=== PATIENT | male | born 1995 | race Hispanic/Latino ===

== ENCOUNTER 2019-01-26 23:16 | Emergency (ER) | payer SELFPAY ==
[2019-01-26 23:16] VITALS: BP 119/64; PULSE 77; RESP 20; TEMP 36.4; O2SAT 100; BMI 23.9
--- NOTE | 2019-01-26 23:28 | EKG12_ITS ---
Test Reason : Blood Pressure : / mmHG Vent. Rate : 071 BPM Atrial Rate : 071 BPM P-R Int : 134 ms QRS Dur : 082 ms QT Int : 358 ms P-R-T Axes : 035 045 041 degrees QTc Int : 389 ms Normal sinus rhythm Normal ECG Confirmed by JUANA WALTERS MD ([id number]), pictures editor NORMA NORWOOD ([id number] on 01/27/2019 2:41:12 PM Referred By: DC Confirmed By:JUANA WALTERS MD
[2019-01-26] MEDS: 0.9% Normal Saline 1,000 ML 1000 ML IV (23:30)
[2019-01-26 23:46] LABS: Absolute Lymphocyte Count 1.65 X10^3/ul (0.83-4.51); Absolute Neutrophil Count 9.4 X10^3/uL (2.0-7.7); Basophil# 0.02 X10^3/uL; Basophil% 0.2 % (0-1); Eosinophil# 0.04 X10^3/uL; Eosinophils% 0.3 % (0-5); Hematocrit 40.9 % (40-54); Hemoglobin 13.8 g/dl (13.0-16.5); Lymphocyte # 1.65 X10^3/ul (4.0); Mean Corp Hgb Conc 33.7 g/gl (32-36); Mean Corpuscular Hgb 30.5 pg (27.0-32.0); Mean Corpuscular Volume 90.3 fL (80-94); Monocyte# 0.69 X10^3/uL; Monocyte% 5.9 % (0-10); Neutrophil # 9.36 X10^3/uL (2.7-7.7); Neutrophil % 79.4 % (47-70); Platelet Count 261 K/mm3 (150-450); RBC Distribution Width CV 12.5 % (11.6-14.6); RBC Distribution Width SD 41.2 fl (35.1-43.9); Red Blood Count 4.53 M/mm3 (4.6-6.2); White Blood Count 11.8 K/mm3 (4.4-11.0)
[2019-01-26 23:47] LABS: POSITIVE COUNT NO; POSITIVE DIFFERENTIAL NO; POSITIVE MORPHOLOGY NO
[2019-01-26 23:55] LABS: International Normalized Ratio 1.1; Partial Thromboplast Time 29.9 Seconds (24.1-36.2); Prothrombin Time (Protime)PT. 14.1 SECONDS (11.7-14.9)
[2019-01-27 00:23] LABS: Alcohol, Blood (Medical)-Serum < 3.0 mg/dL
[2019-01-27 00:31] LABS: Anion Gap 6 (5-15); BUN 12 mg/dL (7-18); BUN/Creat Ratio 12.1 RATIO (10-20); Calcium,Total 9.1 mg/dL (8.5-10.1); Chloride 106 mmol/L (98-107); Creatinine, Serum 0.99 mg/dL (0.70-1.30); EST Glomerular Filtration Rate 97 mL/min (>60); Est Glom Filt Rate - Afr Amer 118 mL/min (>60); Estimated Creatinine Clearance 88.09 ml/min; Glucose 90 mg/dL (74-106); Potassium 3.7 mmol/L (3.5-5.1); Sodium Level 139 mmol/L (136-145)
[2019-01-27 00:47] LABS: Bacteria 0 SEEN /hpf (None Seen); Red Blood Cells-Urine 0 SEEN /hpf (0-5); White Blood Cells 0 SEEN /hpf (0-5)
[2019-01-27 00:52] LABS: Color, Urine Yellow (Yellow); Glucose, Dipstick Normal (Normal); Ketone-Dipstick 5 mg/dl (Negative); Leukocyte Esterase-Dipstick Negative /ul (Negative); Nitrite-Dipstick Negative (Negative); Occult Blood-Urine Negative /ul (Negative); Protein-Dipstick Negative (Negative); Specific Gravity, Urine 1.015 (1.002-1.030); Urine Bilirubin Dipstick Negative (Negative); Urine Clarity Cloudy (Clear); Urine Urobilinogen Normal (Normal)
[2019-01-27 00:59] LABS: Amorphous Sediment 3+; Amphetamine Urine VISTA NEGATIVE (<1000 ng/mL); Barbiturate Urine VISTA NEGATIVE (< 200 ng/mL); Benzodiazepine Urine VISTA NEGATIVE (< 200 ng/mL); Cocaine Urine VISTA NEGATIVE (< 300 ng/mL); Ecstacy Urine VISTA NEGATIVE (< 500 ng/mL); Methadone Urine VISTA NEGATIVE (< 300 ng/mL); Mucous, Urine RARE /hpf (<or=2+); PCP Urine VISTA NEGATIVE (< 25 ng/mL); Squamous Epithelial Cells - UA 0-5 SEEN /hpf (0-5); THC Urine VISTA NEGATIVE (< 50 ng/mL); Vista UDS pH Range 7
[2019-01-27 01:16] VITALS: BP 102/51; PULSE 80; RESP 16; O2SAT 98
--- NOTE | 2019-01-27 01:41 | ED.VISSUMM ---
- ER Visit Summary Date of Service: 01/27/19 Chief Complaint: Headache History of Present Illness: The patient is a 23 M who presents with a headache that started this evening. The pain is in his frontal head and does not radiate. He said he never had a headache like this in the past. Denies any injury. Denies any fevers or recent illness. Denies any drug use or alcohol. Denies blood thinners. Denies weakness or numbness, but according to bystanders, he did have a shaking episode where he was unresponsive. This lasted several minutes, and he woke up spontaneously. EMS was contacted. He was drowsy but had no other seizure activity or issues in route to the ED. Physical Examination: Afebrile and vital signs unremarkable. Head and neck atraumatic. HEENT exam unremarkable. Cranial nerves grossly intact. Heart regular. Lungs clear. Abdomen soft. Good strength and sensation. Test Results: EKG showed sinus rhythm at a rate of 71. No sign of acute ischemia or infarction pattern. White count 11.8. Metabolic panel and coags normal. Urinalysis and troponin unremarkable. Tox screen and alcohol negative. CT brain showed a left temporal lobe lesion concerning for cysticercosis. Recommend MRI. Emergency Department Course and Treatment: Patient presents by EMS. 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 Patient had seizure precautions and monitoring. Workup was all fairly unremarkable except for the brain lesion. We do not have MRI available at this time at this facility. I spoke with neurology who recommended transfer to a facility with neurosurgical care and stat MRI availability. Patient treated with Keppra. I spoke with the call center at [facility]. They discussed the patient with Dr. Redman who advised transfer to the ED for stat MRI and further evaluation. Dr. Egan accepted the patient. Treatment Plan: As above Disposition: Transfer to [facility] Impression: 1. Left temporal lobe lesion 2. Seizure This note was generated with [employer] dictation software. It may contain incorrect words, spelling, and punctuation that were not noted in review of the chart prior to signing ED Disposition - Plan for ED Patient: Referrals: Care Physician,No Primary [Primary Care Provider] -
--- NOTE | 2019-01-27 01:45 | ED.DCSUM_ITS ---
- ER Visit Summary Date of Service: 01/27/19 Chief Complaint: Headache History of Present Illness: The patient is a 23 M who presents with a headache that started this evening. The pain is in his frontal head and does not radiate. He said he never had a headache like this in the past. Denies any injury. Denies any fevers or recent illness. Denies any drug use or alcohol. Denies blood thinners. Denies weakness or numbness, but according to bystanders, he did have a shaking episode where he was unresponsive. This lasted several minutes, and he woke up spontaneously. EMS was contacted. He was drowsy but had no other seizure activity or issues in route to the ED. Physical Examination: Afebrile and vital signs unremarkable. Head and neck atraumatic. HEENT exam unremarkable. Cranial nerves grossly intact. Heart regular. Lungs clear. Abdomen soft. Good strength and sensation. Test Results: EKG showed sinus rhythm at a rate of 71. No sign of acute ischemia or infarction pattern. White count 11.8. Metabolic panel and coags normal. Urinalysis and troponin unremarkable. Tox screen and alcohol negative. CT brain showed a left temporal lobe lesion concerning for cysticercosis. Recommend MRI. Emergency Department Course and Treatment: Patient presents by EMS. 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 Patient had seizure precautions and monitoring. Workup was all fairly unremarka ble except for the brain lesion. We do not have MRI available at this time at this facility. I spoke with neurology who recommended transfer to a facility with neurosurgical care and stat MRI availability. Patient treated with Keppra. I spoke with the call center at [facility]. They discussed the patient with Dr. Redman who advised transfer to the ED for stat MRI and further evaluation. Dr. Egan accepted the patient. Treatment Plan: As above Disposition: Transfer to [facility] Impression: 1. Left temporal lobe lesion 2. Seizure This note was generated with [employer] dictation software. It may contain incorrect words, spelling, and punctuation that were not noted in review of the chart prior to signing ED Disposition - Plan for ED Patient: Referrals: Care Physician,No Primary [Primary Care Provider] -
--- NOTE | 2019-01-27 02:48 | ED.RN ---
FRIEND NEREYDA NOTIFIED THAT PATIENT WAS BEING TRANSFERRED TO [facility] PER PT REQUEST.
--- NOTE | 2019-01-27 23:27 | CT_ITS ---
STUDY: CT BRAIN WITHOUT CONTRAST REASON FOR EXAM: Male, 23 years old. Headache. Seizure RADIATION DOSAGE (If Supplied By Facility): CTDIvol = ( 44.99 ) mGy, DLP = ( 762.36 ) mGycm TECHNIQUE: Transaxial CT imaging of the brain was performed without administration of intravenous contrast material. Individualized dose optimization techniques were used for this CT. COMPARISON: None. FINDINGS: Normal soft tissue structures. Normal calvarium. Normal size ventricles and extra-axial spaces for the patient's age. There is decrease attenuation lesion at the posterior aspect of left temporal lobe, measures 1.5 cm, has nonspecific appearance may represent cysticercosis further evaluation by MRI can be helpful. Multiple small calcific lesions are also noted in the right and left cerebellar hemispheres can be consistent with cysticercosis. Normal brainstem. Normal cerebellum. There is no intracranial hemorrhage. There are no findings of an acute ischemic infarction. Normal visualized paranasal sinuses. CT/Brain/Head without Contrast IMPRESSION: There is decrease attenuation lesion at the posterior aspect of left temporal lobe, measures 1.5 cm, has nonspecific appearance may represent cysticercosis further evaluation by MRI can be helpful. Electronically Signed: Scott Santamaria, at 0:42 EST Tel , Service support ,
== END 2019-01-27 03:17 | disposition short-term general hospital (02) ==
PROVIDERS: Emergency Provider Emergency Medicine
DX: G93.89 Other specified disorders of brain (principal); R56.9 Unspecified convulsions; Z82.0 Family history of epilepsy and other diseases of the nervous system
CPT/HCPCS: 70450; 80048; 80307; 80320; 81001; 84484; 85025; 85610; 85730; 93005; 96361; 96365; 99285; J7030; A4216; G0480